=== PATIENT | female | born 1960 | race Caucasian/White ===

== ENCOUNTER 2016-08-17 09:59 | Day surgery (SDC) | payer BC ==
[~2016-08-17] VITALS: Ht 175.3 cm; Wt 104.3 kg
--- NOTE | 2016-08-17 11:38 | ED EENT ---
History of Present Illness General Chief Complaint: Oral/Throat Problems Stated Complaint: DIFFICULTY SWALLOWING Nursing Triage Note: PT. C/O DIFFICULTY SWALLOWING. STATES SHE CAN'T EVEN SWALLOW HER OWN SPIT AT THIS TIME. NO C/O SOA. JUST PRESSURE AT BASE OF THROAT. PT. DILATATION DONE BY OSWALD. NO DIFFICULTY SPEAKING Source: patient Exam Limitations: no limitations History of Present Illness Time seen by provider: 11:36 Initial Comments To ER with inability to swallow. States that she is unable to swallow even her own saliva at this time. This began this morning upon awakening. No difficulty breathing. She feels pressure in her lower throat. She's had a history of esophageal stricture with dilatation by Dr. Carranza in 2008. She states that she had significant improvement in symptoms for about the year afterwards. However since 2009 she's had progressive dysphagia requires very careful eating, thorough chewing and small bites. Timing/Duration: last week Severity: moderate Associated Symptoms: denies symptoms Allergies and Home Medications Allergies Coded Allergies: No Known Drug Allergies (Unverified , 08/17/16) Home Medications Pantoprazole Sodium 40 Mg , 40 MG PO DAILY, #30 Prescribed by: OSCAR SANHCEZ on 08/17/16 1503 Sucralfate 1 Gm Tablet, 1 GM PO TIDAC, #90 Prescribed by: OSCAR SANCHEZ on 08/17/16 1503 Review of Systems Constitutional: see HPI Eyes: No Symptoms Reported Ears: No Symptoms Reported Nose: no symptoms reported Mouth: no symptoms reported Throat: see HPI Respiratory: no symptoms reported Cardiovascular: no symptoms reported Musculoskeletal: no symptoms reported Past Txucxzn-Hihaws-Gyeoby Hx Patient Social History Alcohol Use: Denies Use Recreational Drug Use: No Smoking Status: Never a Smoker 2nd Hand Smoke Exposure: No Recent Foreign Travel: No Contact w/Someone Who Travel: No Recent Infectious Disease Expo: No Recent Hopitalizations: No Surgeries 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 Blood Transfusions Adverse Reaction to a Blood Tr: No Physical Exam Vital Signs Vital Sign - Last 12Hours 08/17/16 10:20 Temp 97.8 Pulse 94 Resp 18 B/P (MAP) 127/64 Pulse Ox 97 O2 Delivery Room Air General Appearance: WD/WN, no apparent distress Eyes: bilateral eye EOMI, bilateral eye PERRL, bilateral eye normal inspection Ears: bilateral ear TM normal, bilateral ear auricle normal, bilateral ear canal normal Neck: non-tender, full range of motion Respiratory: normal breath sounds, no respiratory distress, no accessory muscle use Gastrointestinal: normal bowel sounds, non tender, soft Neurologic/Psychiatric: alert, normal mood/affect, oriented x 3 Skin: normal color, warm/dry Spitting into a cup, unable to swallow secretions. Progress/Results/Core Measures Results/Orders Lab Results Laboratory Tests Test 08/17/16 11:32 Range/Units White Blood Count 6.0 4.3-11.0 10^3/uL Red Blood Count 4.20 L 4.35-5.85 10^6/uL Hemoglobin 12.5 11.5-16.0 G/DL Hematocrit 38 35-52 % Mean Corpuscular Volume 91 80-99 FL Mean Corpuscular Hemoglobin 30 25-34 PG Mean Corpuscular Hemoglobin Concent 33 32-36 G/DL Red Cell Distribution Width 14.1 10.0-14.5 % Platelet Count 290 130-400 10^3/uL Mean Platelet Volume 10.0 7.4-10.4 FL Neutrophils (%) (Auto) 55 42-75 % Lymphocytes (%) (Auto) 37 12-44 % Monocytes (%) (Auto) 6 0-12 % Eosinophils (%) (Auto) 2 0-10 % Basophils (%) (Auto) 0 0-10 % Neutrophils # (Auto) 3.3 1.8-7.8 X 10^3 Lymphocytes # (Auto) 2.2 1.0-4.0 X 10^3 Monocytes # (Auto) 0.4 0.0-1.0 X 10^3 Eosinophils # (Auto) 0.1 0.0-0.3 10^3/uL Basophils # (Auto) 0.0 0.0-0.1 10^3/uL Sodium Level 140 135-145 MMOL/L Potassium Level 4.2 3.6-5.0 MMOL/L Chloride Level 107 98-107 MMOL/L Carbon Dioxide Level 25 21-32 MMOL/L Anion Gap 8 5-14 MMOL/L Blood Urea Nitrogen 8 7-18 MG/DL Creatinine 0.71 0.60-1.30 MG/DL Estimat Glomerular Filtration Rate > 60 BUN/Creatinine Ratio 11 Glucose Level 89 70-105 MG/DL Calcium Level 9.0 8.5-10.1 MG/DL My Orders Orders - ALICE HANSEN APRN Cbc With Automated Diff (08/17/16 11:35) Basic Metabolic Panel (08/17/16 11:35) Saline Lock/Iv-Start (08/17/16 11:35) Lactated Ringers (Lr 1000 Ml Iv Solution (08/17/16 11:45) Vital Signs/I&O Blood Pressure Mean: 85 Departure Communication Progress Notes 1139-discussed with Dr. Sanchez. He'll be down to see the patient. 1237- Dr. Berger is here and will be taking the patient to endoscopy Impression Impression: Primary Impression: Dysphagia Disposition: ADMITTED INPATIENT Condition: Stable Departure-Patient Inst. Referrals: NO,LOCAL PHYSICIAN (PCP/Family) Primary Care Physician Scripts Pantoprazole Sodium (Protonix) 40 Mg 40 MG PO DAILY, #30 TAB Prov: OSCAR SANCHEZ DO 08/17/16 Sucralfate (Carafate) 1 Gm Tablet 1 GM PO TIDAC, #90 TAB Prov: OSCAR SANCHEZ DO 08/17/16 ALICE HANSEN APRN August 17, 2016 11:37
[2016-08-17 11:45] LABS: BASOPHILS % (AUTO) 0 % (0-10); EOSINOPHILS # (AUTO) 0.1 10^3/uL (0.0-0.3); EOSINOPHILS % (AUTO) 2 % (0-10); LYMPHOCYTES # (AUTO) 2.2 X 10^3 (1.0-4.0); LYMPHOCYTES % (AUTO) 37 % (12-44); MEAN CORPUSCULAR HEMOGLOBIN 30 PG (25-34); MEAN CORPUSCULAR HGB CONC 33 G/DL (32-36); MEAN CORPUSCULAR VOLUME 91 FL (80-99); MONOCYTES # (AUTO) 0.4 X 10^3 (0.0-1.0); MONOCYTES % (AUTO) 6 % (0-12); NEUTROPHILS # (AUTO) 3.3 X 10^3 (1.8-7.8); NEUTROPHILS % (AUTO) 55 % (42-75); PLATELET COUNT 290 10^3/uL (130-400); RED CELL DISTRIBUTION WIDTH 14.1 % (10.0-14.5)
[2016-08-17] MEDS ORDERED: LACTATED RINGERS 1,000 ML IV SCH (11:45)
[2016-08-17 12:03] LABS: ANION GAP 8 MMOL/L (5-14); BLOOD UREA NITROGEN 8 MG/DL (7-18); BUN/CREATININE RATIO 11; CARBON DIOXIDE 25 MMOL/L (21-32); CHLORIDE 107 MMOL/L (98-107); CREATININE SERUM 0.71 MG/DL (0.60-1.30); GFR ESTIMATED > 60; GLUCOSE 89 MG/DL (70-105); POTASSIUM 4.2 MMOL/L (3.6-5.0); SODIUM 140 MMOL/L (135-145)
--- NOTE | 2016-08-17 12:38 | Consultation ---
History of Present Illness History of Present Illness Patient Consulted On(dave/time) 08/17/16 12:33 Date of Admission History of Present Illness Surgery is asked to consult regarding Dysphagia. HPI: Pt presents to ER with inability to swallow. States that she is unable to swallow even her own saliva at this time. This began this morning upon awakening. No difficulty breathing. She feels pressure in her lower throat. She's had a history of esophageal stricture with dilatation by Dr. Carranza in 2008. She states that she had significant improvement in symptoms for about the year afterwards. However since 2009 she's had progressive dysphagia requires very careful eating, thorough chewing and small bites. She gave up bread and is gluten free. She does not think a biopsy was done at the time and never had any treatment for the stricture other than she took a Prilosec for a little while. She denies any pain. No hematemesis. Timing/Duration: last week Severity: moderate Associated Symptoms: denies symptoms Allergies and Home Medications Allergies Coded Allergies: No Known Drug Allergies (Unverified , 08/17/16) Home Medications No Active Prescriptions or Reported Meds Past Nssjswg-Nkddji-Xypdiv Hx Patient Social History Alcohol Use: Denies Use Recreational Drug Use: No Smoking Status: Never a Smoker 2nd Hand Smoke Exposure: No Recent Foreign Travel: No Contact w/Someone Who Travel: No Recent Infectious Disease Expo: No Recent Hopitalizations: No Surgeries HX Surgeries: Yes Surgeries: Hysterectomy Respiratory Hx Respiratory Disorders: No Cardiovascular Hx Cardiac Disorders: No Reproductive System : No Hx Reproductive Disorders: No Sexually Transmitted Disease: No 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 Genitourinary Hx Genitourinary Disorders: No Gastrointestinal Hx Gastrointestinal Disorders: Yes (Esophageal stricture) Musculoskeletal Hx Musculoskeletal Disorders: No Endocrine Hx Endocrine Disorders: Yes Endocrine Disorders: Hypothyroidsim HEENT HX ENT Disorders: Yes HEENT Disorders: Dysphagia Loss of Vision: Denies Hearing Impairment: Denies Cancer Hx Cancer: No Psychosocial Hx Psychiatric Problems: No Integumentary HX Skin/Integumentary Disorder: No Blood Transfusions Hx Blood Disorders: No Adverse Reaction to a Blood Tr: No Family Medical History Significant Family History: Heart Disease (Mother), Cancer (Denies any cancer) , Hypertension (Father) Review of Systems-General Constitutional: No chills, No diaphoresis, No dizziness, No fever, No weakness , No weight loss EENTM: see HPI, No blurred vision, No hearing loss Respiratory: No cough, dyspnea on exertion, No hemoptysis, short of breath, No stridor Cardiovascular: No chest pain, No edema, No palpitations Gastrointestinal: No abdominal pain, dysphagia, No hematemesis, No heartburn, No jaundice, No melena Genitourinary: No decreased output, No discharge, No dysuria, No frequency Skin: No change in color, No change in hair/nails Psychiatric/Neurological: Denies Anxiety, Denies Depressed, Denies Paresthesia , Denies Seizure, Denies Tingling, Denies Weakness Physical Exam-General Problems Physical Exam Vital Signs Vital Sign - Last 12Hours 08/17/16 10:20 Temp 97.8 Pulse 94 Resp 18 B/P (MAP) 127/64 Pulse Ox 97 O2 Delivery Room Air Capillary Refill : Less Than 3 Seconds General Appearance: WD/WN, mild distress Eyes: Bilateral Eye EOMI, Bilateral Eye PERRL HEENT: pharynx normal, No scleral icterus (R), No scleral icterus (L), No pale conjunctivae (R), No pale conjunctivae (L) Neck: non-tender, supple, No thyromegaly Respiratory: chest non-tender, lungs clear, normal breath sounds, no respiratory distress, no accessory muscle use Cardiovascular: regular rate, rhythm, no edema, no murmur Gastrointestinal: normal bowel sounds, non tender, soft, no organomegaly, no pulsatile mass Back: no CVA tenderness, no vertebral tenderness Extremities: normal range of motion, non-tender, no pedal edema, no calf tenderness Neurologic/Psychiatric: lay out maker II-XII nml as tested, no motor/sensory deficits, alert, normal mood/affect, oriented x 3 Skin: normal color, warm/dry Lymphatic: no adenopathy (neck, axilla or groin) Data Review Labs Laboratory Tests 08/17/16 11:32: White Blood Count 6.0, Red Blood Count 4.20L, Hemoglobin 12.5, Hematocrit 38, Mean Corpuscular Volume 91, Mean Corpuscular Hemoglobin 30, Mean Corpuscular Hemoglobin Concent 33, Red Cell Distribution Width 14.1, Platelet Count 290, Mean Platelet Volume 10.0, Neutrophils (%) (Auto) 55, Lymphocytes (%) (Auto) 37 , Monocytes (%) (Auto) 6, Eosinophils (%) (Auto) 2, Basophils (%) (Auto) 0, Neutrophils # (Auto) 3.3, Lymphocytes # (Auto) 2.2, Monocytes # (Auto) 0.4, Eosinophils # (Auto) 0.1, Basophils # (Auto) 0.0, Sodium Level 140, Potassium Level 4.2, Chloride Level 107, Carbon Dioxide Level 25, Anion Gap 8, Blood Urea Nitrogen 8, Creatinine 0.71, Estimat Glomerular Filtration Rate > 60, BUN/ Creatinine Ratio 11, Glucose Level 89, Calcium Level 9.0 Assessment/Plan Assessment/Plan Assessment/Plan Dysphagia with possible obstruction due to stricture or food bolus- Plan is to take pt down for EGD with possible biopsy, possible dilatation. Will possibly need further work-up as an outpt regarding her esophageal stricture. Discussed the risks and complications of the procedure; including but not limited to, pain, bleeding, infection and possible esophageal rupture. All questions answered to her satisfaction. As long as everything goes well she will be sent home after procedure. Will get consent. OSCAR SANCHEZ DO August 17, 2016 12:38
[2016-08-17] MEDS ORDERED: NS IV 1000 ML 1,000 ML IV STA (14:02)
[2016-08-17] MEDS ORDERED: proPOfol 200 MG/20 ML (DIPRIVAN) VIAL IV ONE ×2 (14:14→14:32)
[2016-08-17] MEDS ORDERED: MIDAZOLAM 2 MG/2 ML (VERSED) VIAL ONE (14:14)
[2016-08-17 14:17] VITALS: BP 134/88
--- NOTE | 2016-08-17 15:00 | Progress Note-Post Operative ---
Post-Operative Progess Note Surgeon (s)/Sheriffs (s) Surgeon OSCAR SANCHEZ DO Sheriffs: none Pre-Operative Diagnosis Dysphagia, possible obstruction Post-Operative Diagnosis Almost complete obstruction of esophagus Hiatal Hernia Gastric Polyps Irregular Z-line r/o Esparza's Esophagus Procedure & Operative Findings Date of Procedure 08/17/16 Procedure Performed/Findings EGD with Dilatation EGD with biopsy Anesthesia Type IV by Anesthesia Estimated Blood Loss Estimated blood loss (mL): less than 5 ml Specimens/Packing Specimens Removed esophageal bx GE jxn bx OSCAR SANCHEZ DO August 17, 2016 15:00
[2016-08-17] MEDS ORDERED: PANT40SU PO (15:03)
[2016-08-17] MEDS ORDERED: SUCR1TAB36 PO (15:03)
[2016-08-17 15:05] VITALS: BP 147/79
--- NOTE | 2016-08-17 15:09 | Discharge Inst-Surgical ---
Discharge Inst-Surgical Depart Medication/Instructions New, Converted or Re-Newed RX: RX Given to Pt/Family Patient Instructions Follow up Appt: Make appointment for Saturday or Saturday, call [phone]. Instructions: Make Carafate into a slurry to drink. Make sure to get liquid Prilosec No Smoking Expected Symptoms Coughing up blood, painful swallowing, black or bloody stools Symptoms to Report: Appetite Changes, Extremity Discoloration, Numbness/Tingling, Swelling Increased , Bleeding Excessive, Eyesight Changes, Pain Increased, Urine Color Change, Constipation(Persistent), Fever over 101 degree F, Pain/Pressure in chest, Urinating Difficulty, Cough Up/Vomit Blood, Heart Beat Irreg/Pounding, Pain/ Pressure in jaw, Vaginal Bleeding Increase, Cramps in feet or legs, Lightheadedness, Pain/Pressure in shoulder, Diarrhea(Persistent), Memory Changes Suddenly, Questions/Concerns, Weight gain consecutive days, Dizziness/ Fainting, Nausea/Vomiting, Shortness of Breath, Weight gain over 2 pounds If questions or concerns contact your physician Or seek help at emergency department. Activity Activity as Tolerated: Yes Diet Discharge Diet: Liquid Diet (for next 4 days, until Saturday at least and then can change after you see me in office) Symptoms to Report to Physicia: Nausea/Vomiting, Shortness of Breath If Any Problems/Questions/Issu: Contact Your Physician, Go to Emergency Room OSCAR SANCHEZ DO August 17, 2016 15:09
[2016-08-17 15:45] VITALS: BP 140/80
[2016-08-17 16:14] VITALS: BP 140/80
--- NOTE | 2016-08-18 03:01 | OPERATIVE REPORT ---
DATE OF SERVICE: 08/17/2016 PREOPERATIVE DIAGNOSIS: Dysphagia possible obstruction of esophagus. POSTOPERATIVE DIAGNOSES: 1. Esophageal obstruction. 2. 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 3. Gastric polyps. 4. Hiatal hernia. PROCEDURE: 1. EGD with dilatation. 2. EGD with biopsy. SURGEON: Jordan Joseph DO BUSINESS AFFAIRS MANAGER: None. ANESTHESIA: IV sedation. SPECIMEN: 1. Biopsy from esophageal obstruction. 2. Biopsy from GE junction, possible Esparza's. BLOOD LOSS: Less than 5 mL FLUIDS: Per anesthesia. POSTOPERATIVE CONDITION: Stable. INDICATION FOR PROCEDURE: The patient is a 55-year-old female who apparently started having increase in trouble swallowing and then this morning woke up and could not swallow anything and was actually spitting up her saliva because she could not even swallow that. She has a history of dilatation back in 2008, but does not think any biopsies were done, was only placed on some Prilosec or PPI for little while and stopped it, but she states it has better for about a year and then started getting progressively worse again. FINDINGS: The patient had a near complete obstruction. The patient was taken and biopsies done and then dilatation was performed and she also had change in the Z line and a hiatal hernia as well as small gastric polyps. PROCEDURE: After informed consent was obtained the patient was brought to the endoscopy suite and placed in the left lateral decubitus position. She was administered IV sedation. Anesthesiologist monitored vitals entire time. The scope was inserted, placed on mouth and into esophagus and about only 20 cm in, came to a near complete obstruction. Picture of this was taken and two or three biopsies were done and then elected to do a dilatation using a 12 to 15 mm balloon, able to see pass this, insert the balloon through the stricture and then dilate up to 1 mm around which was probably about 1 atmosphere pressure which probably about 10 mm and then held for a minute and then went to 2 atmospheres and then slightly went to 3 and held for a minute. A 3 atmosphere equals 12 mm diameter, then removed this, able to get the scope down the stomach, with down to stomach into the pylorus, took a picture and then went into the small intestine, cutting the first and second portion of the duodenum, took picture, looked fine, then back into the stomach and then retroflexed, the patient had a large hiatal hernia, took a picture of this and noted some benign gastric polyps, took a picture of these and then pulled the scope back into the esophagus, looked at the GE junction, there was lot of changes. The Z line of GE junction was widened and 3 biopsies were done here. There was some bleeding in the esophagus, but otherwise looked okay and looked open and tried to section out some of these and then removed the scope up out the esophagus and out of mouth. The patient tolerated the procedure and she was transferred to recovery room in stable condition. Job ID: [id number] DocumentID: [id number] Dictated Date: 08/17/2016 15:25:29 Enamel Shader Date: 08/18/2016 02:32:15 Dictated By: JORDAN JOSEPH DO
== END 2016-08-17 16:00 | disposition home or self-care (01) ==
LOC: EDUNIT# 09:59 → ER 10:01 → SDC 12:29
PROVIDERS: ATTEND Surgery
DX: K22.2 Esophageal obstruction (principal); K22.10 Ulcer of esophagus without bleeding; K44.9 Diaphragmatic hernia without obstruction or gangrene; K31.7 Polyp of stomach and duodenum
CPT/HCPCS: 36415; 80048; 85025; 96360